=== PATIENT | female | born 1980 | race Caucasian/White ===

== ENCOUNTER 2017-10-07 20:43 | Emergency (ER) | payer MEDICAID | END 2017-10-08 04:13 | disposition home or self-care (01) | LOC: FTE 20:43 | DX: O99.511 Diseases of the respiratory system complicating pregnancy, first trimester (principal); J02.0 Streptococcal pharyngitis; Z3A.01 Less than 8 weeks gestation of pregnancy | CPT/HCPCS: 87880; 99283 ==

== ENCOUNTER 2017-10-21 13:05 | Emergency (ER) | payer MEDICAID ==
[2017-10-21] MEDS: ACETAMINOPHEN 500 MG TAB PO (16:25)
[2017-10-21 16:39] LABS: ADD MAN DIFF? NO
[2017-10-21 16:44] LABS: WHITE BLOOD COUNT 6.8 10^3/ul (4.8-10.8)
[2017-10-21 16:44] LABS: BASOPHILS % 0.6 % (0.0-2.0); EOSINOPHILS # 0.1 10^3/ul (0.0-0.5); EOSINOPHILS % 0.7 % (0.0-7.0); HEMATOCRIT 39.3 % (37.0-47.0); HEMOGLOBIN 13.5 g/dl (12.0-16.0); LYMPHOCYTES # 2.3 10^3/ul (0.8-2.9); LYMPHOCYTES % 33.2 % (15.0-51.0); MEAN CORPUSCULAR HEMOGLOBIN 30.1 pg (29.0-33.0); MEAN CORPUSCULAR HGB CONC 34.4 g/dl (32.0-37.0); MEAN CORPUSCULAR VOLUME 87.7 fl (82.0-101.0); MONOCYTE # 0.3 10^3/ul (0.3-0.9); MONOCYTES % 4.8 % (0.0-11.0); NEUTROPHIL # 4.1 10^3/ul (1.6-7.5); NEUTROPHILS % 60.6 % (39.0-77.0); PLATELET COUNT 269 10^3/UL (140-415); RED BLOOD COUNT 4.48 10^6/ul (4.20-5.40); RED CELL DISTRIBUTION WIDTH 12.1 % (11.5-14.5)
[2017-10-21 16:55] LABS: ADD UMIC YES; UR ASCORBIC ACID NEGATIVE (NEGATIVE); UR BACTERIA FEW /HPF (NONE SEEN); UR BILIRUBIN (Dip) NEGATIVE (NEGATIVE); UR BLOOD (Dip) 3+ mg/dL (NEGATIVE); UR CLARITY SLIGHTLY CLOUDY (CLEAR); UR COLOR YELLOW (YELLOW); UR GLUCOSE (Dip) NEGATIVE (NEGATIVE); UR KETONES (Dip) TRACE mg/dL (NEGATIVE); UR LEUKOCYTE ESTERASE (Dip) 1+ Leu/ul (NEGATIVE); UR MUCUS FEW /HPF (NONE SEEN); UR NITRITE (Dip) NEGATIVE (NEGATIVE); UR RBC 9 /HPF (0-5); UR SPECIFIC GRAVITY (Dip) 1.013 (1.003-1.030); UR SQUAMOUS EPITHELIAL CELL FEW /HPF (FEW); UR TOTAL PROTEIN (Dip) NEGATIVE (NEGATIVE); UR UROBILINOGEN (Dip) NEGATIVE (NEGATIVE); UR WBC 9 /HPF (0-5)
== END 2017-10-21 18:03 | disposition home or self-care (01) ==
LOC: FTE 13:05
DX: O20.9 Hemorrhage in early pregnancy, unspecified (principal); O23.11 Infections of bladder in pregnancy, first trimester; R10.2 Pelvic and perineal pain
CPT/HCPCS: 36415; 76801; 76817; 81001; 84702; 85025; 86900; 86901; 87086; 99284-25

== ENCOUNTER 2017-10-22 11:57 | Emergency (ER) | payer MEDICAID ==
[2017-10-22 14:05] LABS: ADD MAN DIFF? NO
[2017-10-22 14:07] LABS: WHITE BLOOD COUNT 7.8 10^3/ul (4.8-10.8)
[2017-10-22 14:07] LABS: BASOPHILS % 0.4 % (0.0-2.0); EOSINOPHILS # 0.1 10^3/ul (0.0-0.5); EOSINOPHILS % 0.6 % (0.0-7.0); HEMATOCRIT 37.4 % (37.0-47.0); LYMPHOCYTES # 1.7 10^3/ul (0.8-2.9); LYMPHOCYTES % 21.4 % (15.0-51.0); MEAN CORPUSCULAR HEMOGLOBIN 30.4 pg (29.0-33.0); MEAN CORPUSCULAR HGB CONC 34.8 g/dl (32.0-37.0); MEAN CORPUSCULAR VOLUME 87.6 fl (82.0-101.0); MONOCYTE # 0.4 10^3/ul (0.3-0.9); MONOCYTES % 5.2 % (0.0-11.0); NEUTROPHIL # 5.7 10^3/ul (1.6-7.5); NEUTROPHILS % 72.3 % (39.0-77.0); PLATELET COUNT 241 10^3/UL (140-415); RED BLOOD COUNT 4.27 10^6/ul (4.20-5.40); RED CELL DISTRIBUTION WIDTH 12.1 % (11.5-14.5)
[2017-10-22] MEDS: KETOROLAC 15 MG INJ IM (15:04)
== END 2017-10-22 17:32 | disposition home or self-care (01) ==
LOC: E/R 17:32
DX: O03.9 Complete or unspecified spontaneous abortion without complication (principal); R40.2252 Coma scale, best verbal response, oriented, at arrival to emergency department; R40.2142 Coma scale, eyes open, spontaneous, at arrival to emergency department; R40.2362 Coma scale, best motor response, obeys commands, at arrival to emergency department; R10.2 Pelvic and perineal pain
CPT/HCPCS: 76801; 76817; 85025; 88305; 96372; 99285-25

== ENCOUNTER 2018-07-13 12:45 | Emergency (ER) | payer MEDICAID ==
[2018-07-13 14:23] LABS: ADD MAN DIFF? NO
[2018-07-13 14:32] LABS: BASOPHILS % 0.3 % (0.0-2.0); EOSINOPHILS # 0.1 10^3/ul (0.0-0.5); EOSINOPHILS % 1.2 % (0.0-7.0); HEMATOCRIT 37.6 % (37.0-47.0); HEMOGLOBIN 12.7 g/dl (12.0-16.0); LYMPHOCYTES # 1.7 10^3/ul (0.8-2.9); LYMPHOCYTES % 27.6 % (15.0-51.0); MEAN CORPUSCULAR HEMOGLOBIN 30.5 pg (29.0-33.0); MEAN CORPUSCULAR HGB CONC 33.8 g/dl (32.0-37.0); MEAN CORPUSCULAR VOLUME 90.4 fl (82.0-101.0); MEAN PLATELET VOLUME 9.2 fl (7.4-10.4); MONOCYTE # 0.3 10^3/ul (0.3-0.9); MONOCYTES % 5.2 % (0.0-11.0); NEUTROPHIL # 3.9 10^3/ul (1.6-7.5); NEUTROPHILS % 65.5 % (39.0-77.0); PLATELET COUNT 244 10^3/UL (140-415); RED BLOOD COUNT 4.16 10^6/ul (4.20-5.40)
[2018-07-13 14:37] LABS: ADD UMIC YES; UR ASCORBIC ACID 40 mg/dL (NEGATIVE); UR BACTERIA FEW /HPF (NONE SEEN); UR BILIRUBIN (Dip) NEGATIVE (NEGATIVE); UR BLOOD (Dip) NEGATIVE (NEGATIVE); UR CLARITY SLIGHTLY CLOUDY (CLEAR); UR COLOR YELLOW (YELLOW); UR GLUCOSE (Dip) NEGATIVE (NEGATIVE); UR KETONES (Dip) TRACE mg/dL (NEGATIVE); UR LEUKOCYTE ESTERASE (Dip) 1+ Leu/ul (NEGATIVE); UR MUCUS FEW /HPF (NONE SEEN); UR NITRITE (Dip) NEGATIVE (NEGATIVE); UR RBC 1 /HPF (0-5); UR SPECIFIC GRAVITY (Dip) 1.019 (1.003-1.030); UR SQUAMOUS EPITHELIAL CELL FEW /HPF (FEW); UR TOTAL PROTEIN (Dip) NEGATIVE (NEGATIVE); UR UROBILINOGEN (Dip) NEGATIVE (NEGATIVE); UR WBC 11 /HPF (0-5)
== END 2018-07-13 16:12 | disposition home or self-care (01) ==
LOC: FTE 12:45
DX: O02.1 Missed abortion (principal)
CPT/HCPCS: 36415; 76801; 76817; 81001; 84702; 85025; 86900; 86901; 99284-25

== ENCOUNTER 2018-07-18 13:50 | Day surgery (SDC) | payer MEDICAID ==
[~2018-07-18 13:50] MED LIST: CEFAZOLIN 1 GM INJ; DEXAMETHASONE 4 MG/ML 1 ML INJ; LACTATED RINGER'S 1,000 ML IV*; LIDOCAINE 2% (SDV) 5 ML INJ; ONDANSETRON 4 MG INJ
[2018-07-18 14:27] LABS: ADD MAN DIFF? NO
[2018-07-18 14:28] LABS: BASOPHILS % 0.5 % (0.0-2.0); EOSINOPHILS % 0.6 % (0.0-7.0); HEMATOCRIT 37.2 % (37.0-47.0); HEMOGLOBIN 12.8 g/dl (12.0-16.0); LYMPHOCYTES # 1.9 10^3/ul (0.8-2.9); LYMPHOCYTES % 30.2 % (15.0-51.0); MEAN CORPUSCULAR HEMOGLOBIN 30.5 pg (29.0-33.0); MEAN CORPUSCULAR HGB CONC 34.4 g/dl (32.0-37.0); MEAN CORPUSCULAR VOLUME 88.6 fl (82.0-101.0); MEAN PLATELET VOLUME 8.9 fl (7.4-10.4); MONOCYTE # 0.3 10^3/ul (0.3-0.9); MONOCYTES % 5.2 % (0.0-11.0); NEUTROPHILS % 63.3 % (39.0-77.0); PLATELET COUNT 244 10^3/UL (140-415); RED CELL DISTRIBUTION WIDTH 11.9 % (11.5-14.5)
[2018-07-18 14:28] LABS: WHITE BLOOD COUNT 6.3 10^3/ul (4.8-10.8)
[2018-07-18 14:48] LABS: INR 1.05; PARTIAL THROMBOPLASTIN TIME 29.1 Sec (23.0-35.0); PROTIME 13.8 Sec (11.9-14.9); PT RATIO 1.1
[2018-07-18] MEDS ORDERED: PROPOFOL 100 ML (16:07)
[2018-07-18] MEDS ORDERED: LIDOCAINE 2% (SDV) 5 ML INJ (16:09)
[2018-07-18] MEDS ORDERED: KETOROLAC 30 MG INJ (16:19)
[2018-07-18] MEDS ORDERED: ONDANSETRON 4 MG INJ (16:24)
[2018-07-18] MEDS ORDERED: DEXAMETHASONE 4 MG/ML 1 ML INJ (16:24)
[2018-07-18] MEDS ORDERED: OXYTOCIN 10 UNIT INJ ×2 (16:35)
[2018-07-18] MEDS ORDERED: MEPERIDINE 25 MG INJ IV (17:00)
[2018-07-18] MEDS ORDERED: OXYCODONE/ACETAMINOPHEN (5/325) TAB PO ×2 (17:00)
[2018-07-18] MEDS ORDERED: LABETALOL HCL 20MG INJ IV (17:00)
[2018-07-18] MEDS ORDERED: DIPHENHYDRAMINE 50 MG INJ IV (17:00)
[2018-07-18] MEDS ORDERED: hydrALAzine 20 MG INJ IV (17:00)
[2018-07-18] MEDS ORDERED: ALBUTEROL 0.083% (NEB) 2.5 MG/3 ML AMP HHN (17:00)
[2018-07-18] MEDS ORDERED: FENTAnyl 50 MCG/ML VIAL IV ×3 (17:00)
[2018-07-18] MEDS ORDERED: ONDANSETRON 4 MG INJ IV (17:00)
[2018-07-18] MEDS ORDERED: EPHEDrine SULFATE 50 MG/5 ML SYG IV (17:00)
[2018-07-18] MEDS ORDERED: KETOROLAC 30 MG INJ IV (17:00)
[2018-07-18] MEDS: DOXYCYCLINE 100 MG TAB PO (17:17)
== END 2018-07-18 18:00 | disposition home or self-care (01) ==
LOC: SDS 13:50
DX: O02.1 Missed abortion (principal)
CPT/HCPCS: 59820; 85025; 85610; 85730; 88305

== ENCOUNTER → 2018-07-27 | Outpatient (CLI) | payer MEDICAID | END | disposition home or self-care (01) | LOC: U/S 15:19 | DX: O03.4 Incomplete spontaneous abortion without complication (principal) | CPT/HCPCS: 76801; 76817 ==